=== PATIENT | female | born 1945 | race Caucasian/White ===

== ENCOUNTER 2022-03-02 16:18 | Emergency (ER) | payer MEDICARE ==
[~2022-03-02 16:18] MED LIST: ASPIRIN325 MG PO; BACTRIM D.S. TAB1 EA PO; FISH OIL 1,0001 EACH PO; PEPCID20 MG PO; POTASSIUM CHLO10 MEQ PO; SOTALOL120 MG PO; TYLENOL325 MG PO; XARELTO20 MG PO
[2022-03-02 16:35] LABS: HEMOGLOBIN 13.5 gm/dl (12.3-15.3); RED BLOOD COUNT 4.52 M/UL (4.00-5.10); WHITE BLOOD COUNT 10.8 K/UL (4.5-11.0)
[2022-03-02 17:00] LABS: BUN/CREATININE RATIO 22 (0-10)
== END 2022-03-02 20:00 | disposition short-term general hospital (02) ==
LOC: ER1 16:18
PROVIDERS: Emergency Medicine
DX: S82.451B Displaced comminuted fracture of shaft of right fibula, initial encounter for open fracture type I or II (principal); S82.251B Displaced comminuted fracture of shaft of right tibia, initial encounter for open fracture type I or II; I48.91 Unspecified atrial fibrillation; K21.9 Gastro-esophageal reflux disease without esophagitis; I10 Essential (primary) hypertension; W01.0XXA Fall on same level from slipping, tripping and stumbling without subsequent striking against object, initial encounter
CPT/HCPCS: 27752; 71045; 72170; 73590; 80053; 82550; 82553; 84484; 85025; 85610; 85730; 93005; 96374; 96375; 96376; 99284; J0690; J2270; J2405; J2704